=== PATIENT | female | born 1965 ===

== ENCOUNTER 2018-08-06 09:12 | Emergency (ER) | payer OTHER ==
[2018-08-06 09:20] VITALS: O2SAT 100
[2018-08-06 09:27] VITALS: RESP 17
--- NOTE | 2018-08-06 10:51 | C.PDOC ---
Time Seen by Provider: 08/06/18 09:33 Chief Complaint (Nursing): Shortness Of Breath Past Medical History Vital Signs: Last Vital Signs Temp 98.0 F 08/06/18 09:16 Pulse 71 08/06/18 09:16 Resp 17 08/06/18 09:24 BP 147/87 08/06/18 09:16 Pulse Ox 100 08/06/18 09:24 - Medical History PMH: Asthma - Social History Hx Alcohol Use: No Hx Substance Use: No - Immunization History Hx Tetanus Toxoid Vaccination: (unk) Hx Influenza Vaccination: No Hx Pneumococcal Vaccination: (unk) ED Course And Treatment O2 Sat by Pulse Oximetry: 100 Disposition - Disposition Disposition: HOME/ ROUTINE Disposition Time: 10:51 Condition: STABLE Additional Instructions: Follow up with the medical doctor within 1-2 days. Return if worsened. Forms: [employer] (Macanese)
--- NOTE | 2018-08-06 10:51 | C.PDOC ---
History Of Present Illness 53 years old female with PMHx of asthma presents to ED for complaints of productive cough, SOB, and chest congestion that began 3 weeks ago. Denies any other complaints. Time Seen by Provider: 08/06/18 09:33 Chief Complaint (Nursing): Shortness Of Breath History Per: Patient History/Exam Limitations: no limitations Onset/Duration Of Symptoms: Hrs Current Symptoms Are (Timing): Still Present Exacerbating Factor(s): Coughing Current Respiratory Medications: See Home Med List Associated Symptoms: Productive Cough Recent travel outside of the [place]: No Past Medical History Reviewed: Historical Data, Nursing Documentation, Vital Signs Vital Signs: Last Vital Signs Temp 98.0 F 08/06/18 09:16 Pulse 71 08/06/18 09:16 Resp 17 08/06/18 09:24 BP 147/87 08/06/18 09:16 Pulse Ox 100 08/06/18 09:24 - Medical History PMH: Asthma Family History: States: No Known Family Hx - Social History Hx Alcohol Use: No Hx Substance Use: No - Immunization History Hx Tetanus Toxoid Vaccination: (unk) Hx Influenza Vaccination: No Hx Pneumococcal Vaccination: (unk) Review Of Systems Constitutional: Negative for: Fever, Chills Cardiovascular: Positive for: Other (Chest congestion) Respiratory: Positive for: Cough, Shortness of Breath Gastrointestinal: Negative for: Nausea, Vomiting, Diarrhea Skin: Negative for: Rash Neurological: Negative for: Weakness, Numbness Physical Exam - Physical Exam Appears: Non-toxic, No Acute Distress Skin: Warm, Dry, No Rash Head: Atraumatic, Normacephalic Eye(s): bilateral: Normal Inspection, PERRL, EOMI Oral Mucosa: Moist Neck: Normal ROM, Supple Chest: Symmetrical, No Tenderness Cardiovascular: Rhythm Regular, No Murmur Respiratory: Normal Breath Sounds, No Rales, No Rhonchi, No Wheezing Gastrointestinal/Abdominal: Bowel Sounds, Soft, No Tenderness Extremity: Normal ROM Extremity: Bilateral: Atraumatic, Normal Color And Temperature, Normal ROM Pulses: Left Radial: Normal, Right Radial: Normal Neurological/Psych: Oriented x3, Normal Speech Gait: Steady ED Course And Treatment O2 Sat by Pulse Oximetry: 100 (RA) Pulse Ox Interpretation: Normal Medical Decision Making Medical Decision Making: Plan: * Prednisone On re-exam, the patient the patient reports improvement of symptoms. Lungs are CTA, heart is RRR, abdomen is soft, non-tender and tolerating PO well. The patient is ambulatory in the ED with steady gait. Follow up with the medical doctor within 1-2 days. Return if worsened. Disposition - Disposition Disposition: HOME/ ROUTINE Disposition Time: 10:30 Condition: STABLE Additional Instructions: Follow up with the medical doctor within 1-2 days. Return if worsened. 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 - Scribe Statement The provider has reviewed the documentation as recorded by the Bryanibtrisha June All medical record entries made by the Bryanibtrisha were at my direction and personally dictated by me. I have reviewed the chart and agree that the record accurately reflects my personal performance of the history, physical exam, medical decision making, and the department course for this patient. I have also personally directed, reviewed, and agree with the discharge instructions and disposition.
[2018-08-06 11:07] VITALS: BP 137/85; PULSE 68; TEMP 98.1
== END 2018-08-06 11:06 | disposition home or self-care (01) ==
LOC: C.ER 09:12
DX: J45.909 Unspecified asthma, uncomplicated (principal); J98.8 Other specified respiratory disorders

== ENCOUNTER 2018-11-02 10:21 | Observation (INO) | payer MEDICAID, OTHER ==
[2018-11-02] MEDS ORDERED: Sodium Chloride 0.9% 1,000 ML IV ONE (11:20)
--- NOTE | 2018-11-02 11:26 | C.PDOC ---
History Of Present Illness 53 y/o female presents to the ER complaining of left sided chest pain which began after she "pulled garage door" 2 days ago. Pt states that the pain is localized over the left anterior chest wall. Pt reports that the pain is reproducible and worse with movement.Pt denies having fever,chills, headache, dizziness, SOB and palpitations. Time Seen by Provider: 11/02/18 11:09 Chief Complaint (Nursing): Chest Pain History Per: Patient History/Exam Limitations: no limitations Onset/Duration Of Symptoms: Days Current Symptoms Are (Timing): Still Present Severity: Moderate Past Medical History Reviewed: Historical Data, Nursing Documentation, Vital Signs Vital Signs: Last Vital Signs Temp 98.6 F 11/02/18 10:36 Pulse 87 11/02/18 10:51 Resp 18 11/02/18 10:51 BP 144/63 11/02/18 10:51 Pulse Ox 99 11/02/18 10:51 - Medical History PMH: Asthma Other Surgeries: Hx of surgeries Family History: States: No Known Family Hx - Social History Hx Alcohol Use: No Hx Substance Use: No - Immunization History Hx Tetanus Toxoid Vaccination: (unk) Hx Influenza Vaccination: No Hx Pneumococcal Vaccination: (unk) Review Of Systems Except As Marked, All Systems Reviewed And Found Negative. Constitutional: Negative for: Fever, Chills Cardiovascular: Positive for: Chest Pain. Negative for: Palpitations Respiratory: Negative for: Shortness of Breath Neurological: Negative for: Headache, Dizziness Physical Exam - Physical Exam Appears: Non-toxic, No Acute Distress Skin: Normal Color, Warm, Dry Head: Atraumatic, Normacephalic Eye(s): bilateral: Normal Inspection Nose: Normal Oral Mucosa: Moist Neck: Supple Chest: Symmetrical, Tenderness (tenderness overlying left anterior chest wall), No Ecchymosis Cardiovascular: Rhythm Regular Respiratory: Normal Breath Sounds, No Rales, No Rhonchi, No Wheezing Gastrointestinal/Abdominal: Normal Exam, Soft, No Tenderness, No Guarding, No Rebound Neurological/Psych: Oriented x3, Normal Speech ED Course And Treatment - Laboratory Results Result Diagrams: 11/02/18 11:57 11/02/18 11:57 Lab Interpretation: No Acute Changes ECG: Interpreted By Me, Viewed By Me ECG Rhythm: Sinus Rhythm ECG Interpretation: Abnormal Interpretation Of ECG: SR@86/min, NAD, ST-T depression in II, III O2 Sat by Pulse Oximetry: 99 (RA) Pulse Ox Interpretation: Normal - Radiology CXR: Interpreted by Me, Read By Radiologist CXR Interpretation: Yes: No Acute Disease Progress Note: Labs,UA,ECG, and CXR ordered.Patient treated with IV Fluids and Toradol IV. Troponin I - negative. EKG- appears abnormal. Case discussed with ED attending and admission recommend. Case discussed with , admission to OBS tele with DX: CP, abnormal EKG arranged. Disposition - Disposition Disposition: HOSPITALIZED Disposition Time: 13:08 Condition: STABLE - Clinical Impression Clinical Impression: Chest pain, Abnormal EKG - PA / VP & GENERAL COUNSEL / Resident Statement MD/DO has reviewed & agrees with the documentation as recorded. - Scribe Statement The provider has reviewed the documentation as recorded by the Bryanibe Radha Wills Provider Attestation All medical record entries made by the Scribe were at my direction and personally dictated by me. I have reviewed the chart and agree that the record accurately reflects my personal performance of the history, physical exam, medical decision making, and the department course for this patient. I have also personally directed, reviewed, and agree with the discharge instructions and disposition.
[2018-11-02] MEDS ORDERED: Sodium Chloride 0.9% 1,000 ML ONE (11:37)
[2018-11-02 11:57] LABS: SQUAMOUS EPITHIAL 4 /hpf (0-5); URINE BILIRUBIN NEGATIVE (NEGATIVE); URINE BLOOD NEGATIVE (NEGATIVE); URINE CLARITY Hazy (Clear); URINE COLOR Yellow (YELLOW); URINE GLUCOSE (UA) NORMAL (Normal); URINE LEUKOCYTE ESTERASE TRACE Leu/uL (Negative); URINE PROTEIN NEGATIVE (NEGATIVE); URINE UROBILINOGEN NORMAL mg/dL (0.2-1.0)
[2018-11-02 12:01] LABS: BASO # 0.1 K/uL (0.0-0.2); BASO % 0.7 % (0.0-2.0); EOS % 0.6 % (0.0-4.0); HEMOGLOBIN 12.8 g/dL (11.0-16.0); LYMPH # 1.5 K/uL (1.0-4.3); LYMPH % 21.6 % (20.0-40.0); MEAN CELL VOLUME 94.6 fL (81.0-99.0); MEAN CORPUSCULAR HEMOGLOBIN 31.5 pg (27.0-31.0); MEAN CORPUSCULAR HGB CONC 33.3 g/dL (33.0-37.0); MONO # 0.4 K/uL (0.0-0.8); MONO % 5.4 % (0.0-10.0); NEUT # 4.9 K/uL (1.8-7.0); NEUT % 71.7 % (50.0-75.0); RBC 4.07 Mil/uL (3.80-5.20); RED CELL DISTRIBUTION WIDTH 12.8 % (11.5-14.5); WHITE BLOOD COUNT 6.9 K/uL (4.8-10.8)
[2018-11-02 12:08] LABS: INR 1.1; PROTHROMBIN TIME 11.9 SECONDS (9.7-12.2)
[2018-11-02 12:17] LABS: ALB/GLOB RATIO 1.3 (1.0-2.1); ALBUMIN 4.4 g/dL (3.5-5.0); BLOOD UREA NITROGEN 13 mg/dL (7-17); CALCIUM 9.5 mg/dl (8.6-10.4); GFR NON-AFRICAN AMERICAN > 60
[2018-11-02 12:24] LABS: ALT/SGPT 8 U/L (9-52); AST/SGOT 30 U/L (14-36)
[2018-11-02 12:26] LABS: B-TYPE NATRIURETIC PEPTIDE 34.4 pg/mL (0-900)
--- NOTE | 2018-11-02 12:48 | RAD ---
Date of service: 11/02/2018 HISTORY: Chest pain COMPARISON: 09/08/2015. TECHNIQUE: Chest PA and lateral FINDINGS: LINES AND TUBES: None. LUNG AND PLEURA: The lungs are well inflated and clear. No pleural effusion or pneumothorax. HEART AND MEDIASTINUM: The heart is not enlarged. No aortic atherosclerotic calcifications present. The hilar and mediastinal contours are within normal limits. SKELETAL STRUCTURES: The bony structures are within normal limits for the patient's age. VISUALIZED UPPER ABDOMEN: Normal. OTHER FINDINGS: None. IMPRESSION: No active pulmonary disease.
--- NOTE | 2018-11-02 15:04 | CP.PCM.HP ---
<NikhilSurya - Last Filed: 11/02/18 15:23> History of Present Illness - History of Present Illness History of Present Illness: PGY-1 History and Physical [address] Dr. Sweet Patient is a 53 year old female with past medical history of asthma (no prior intubations) presenting to the ED with acute onset L sided chest pain that began at night 2 days ago. Pain is described as sharp, localized to the L side of her chest/breast area, rated 7/10 in severity. Pain is reproducible with t runk flexion and rotation. Patient states she works at a [employer] and was closing shop/pulling down the gate 2 nights ago, began to have L sided chest pain later that night. She states she took 4 Motrin tablets 3 hours apart, then took Aleve with minimal improvement. No fevers/chills, headaches, dizziness, palpitation, shortness of breath, nausea/vomiting/diarrhea/constipation, dysuria, or changes in stool. 12 pt ROS reviewed and otherwise negative. Of note, patient undergoes annual mammogram screenings for b/l stable solid cystic nodules, previously biopsed. PMHx: asthma PSHx: denies. Allergies: NKDA Home Meds: albuterol pump "as needed, ~1x/year" Family Hx: Father--HTN, Brother--, substance abuse Social Hx: denies alcohol, tobacco, illicit drug use PMD: Clinic Present on Admission - Present on Admission Any Indicators Present on Admission: No Review of Systems - Review of Systems All systems: reviewed and no additional remarkable complaints except Review of Systems: as per HPI Past Patient History - Past Social History Smoking Status: Never Smoked - PULMONARY Hx Asthma: Yes - PSYCHIATRIC Hx Substance Use: No - SURGICAL HISTORY Hx Surgeries: Yes Hx Tubal Ligation: Yes - ANESTHESIA Hx Anesthesia: Yes Hx Anesthesia Reactions: No Meds Allergies/Adverse Reactions: Allergies Allergy/AdvReac Type Severity Reaction Status Date / Time No Known Allergies Allergy Verified 11/02/18 10:40 Physical Exam - Constitutional Appears: Non-toxic, No Acute Distress - Head Exam Head Exam: ATRAUMATIC, NORMAL INSPECTION, NORMOCEPHALIC - Eye Exam Eye Exam: EOMI, Normal appearance Pupil Exam: NORMAL ACCOMODATION - ENT Exam ENT Exam: Mucous Membranes Moist, Normal Exam - Neck Exam Neck exam: Positive for: Full Rom, Normal Inspection. Negative for: Tenderness - Respiratory Exam Respiratory Exam: Chest Wall Tenderness (elicited with active trunk flexion, sidebending/rotation), Clear to Auscultation Bilateral, NORMAL BREATHING PATTERN. absent: Accessory Muscle Use, Rales, Rhonchi, Wheezes, Respiratory Dis tress, Stridor - Cardiovascular Exam Cardiovascular Exam: REGULAR RHYTHM, +S1, +S2 - GI/Abdominal Exam GI & Abdominal Exam: Normal Bowel Sounds, Soft. absent: Distended, Firm, Guarding, Hernia, Rebound, Rigid, Tenderness - Extremities Exam Extremities exam: Positive for: normal capillary refill, normal inspection, pedal pulses present. Negative for: calf tenderness, pedal edema - Back Exam Back exam: NORMAL INSPECTION. absent: CVA tenderness (L), CVA tenderness (R), paraspinal tenderness - Neurological Exam Neurological exam: Alert, CN II-XII Intact, Normal Gait, Oriented x3 - Psychiatric Exam Psychiatric exam: Normal Affect, Normal Mood - Skin Skin Exam: Dry, Intact, Normal Color, Warm Results - Vital Signs Recent Vital Signs: Last Vital Signs Temp 98.3 F 11/02/18 14:32 Pulse 75 11/02/18 14:32 Resp 18 11/02/18 14:32 BP 137/62 11/02/18 14:32 Pulse Ox 99 11/02/18 14:37 - Labs Result Diagrams: 11/02/18 11:57 11/02/18 11:57 Labs: Laboratory Results - last 24 hr 11/02/18 11/02/18 11/02/18 11:47 11:57 11:57 WBC 6.9 RBC 4.07 Hgb 12.8 Hct 38.5 MCV 94.6 MCH 31.5 H MCHC 33.3 RDW 12.8 Plt Count 287 MPV 10.0 Neut % (Auto) 71.7 Lymph % (Auto) 21.6 [place] % (Auto) 5.4 Eos % (Auto) 0.6 Baso % (Auto) 0.7 Neut # (Auto) 4.9 Lymph # (Auto) 1.5 [place] # (Auto) 0.4 Eos # (Auto) 0.0 Baso # (Auto) 0.1 PT 11.9 INR 1.1 APTT 35 H Sodium Potassium Chloride Carbon Dioxide Anion Gap BUN Creatinine Est GFR ( Amer) Est GFR (Non-Af Amer) Random Glucose Calcium Total Bilirubin AST ALT Alkaline Phosphatase Troponin I NT-Pro-B Natriuret Pep Total Protein Albumin Globulin Albumin/Globulin Ratio Urine Color Yellow Urine Clarity Hazy Urine pH 8.0 Ur Specific [place] 1.009 Urine Protein Negative Urine Glucose (UA) Normal Urine Ketones Negative Urine Blood Negative Urine Nitrate Negative Urine Bilirubin Negative Urine Urobilinogen Normal Ur Leukocyte Esterase Trace Urine WBC (Auto) 4 Urine RBC (Auto) 5 H Ur Squamous Epith Cells 4 11/02/18 11:57 WBC RBC Hgb Hct MCV MCH MCHC RDW Plt Count MPV Neut % (Auto) Lymph % (Auto) [place] % (Auto) Eos % (Auto) Baso % (Auto) Neut # (Auto) Lymph # (Auto) [place] # (Auto) Eos # (Auto) Baso # (Auto) PT INR APTT Sodium 140 Potassium 4.2 Chloride 104 Carbon Dioxide 31 H Anion Gap 9 L BUN 13 Creatinine 0.7 Est GFR ( Amer) > 60 Est GFR (Non-Af Amer) > 60 Random Glucose 100 Calcium 9.5 Total Bilirubin 0.9 AST 30 ALT 8 L D Alkaline Phosphatase 53 Troponin I < 0.0120 NT-Pro-B Natriuret Pep 34.4 Total Protein 7.8 Albumin 4.4 Globulin 3.4 Albumin/Globulin Ratio 1.3 Urine Color Urine Clarity Urine pH Ur Specific [place] Urine Protein Urine Glucose (UA) Urine Ketones Urine Blood Urine Nitrate Urine Bilirubin Urine Urobilinogen Ur Leukocyte Esterase Urine WBC (Auto) Urine RBC (Auto) Ur Squamous Epith Cells Assessment & Plan - Assessment and Plan (Free Text) Assessment: 53 year old female with no pmhx presenting to ED with acute onset chest pain, likely musculoskeletal in origin, r/o ACS. Plan: Atypical chest pain -tropinin x 1 negative -CXR: no acute findings -EKG: NSR @ 86 bpm, no ST or T wave changes noted -f/u serial trops -f/u repeat EKG -lipid panel -tsh/free t4 -A1C -ibuprofen 600 mg PO TID prn for pain -toradol 30 mg q6 x 5 doses -flexeril 10 mg PO x 1 Breast nodules, bilaterally -previously biopsed, pt undergoes annual mammogram screening with no evidence of malignancy -breast u/s (12/01/17) -R breast: 9 o'clock axis, 3cm from nipple: hypoechoic solid nodule 4x8x8 mm; 11 o'clock axis, 2 cm from nipple: simple cyst, [id number] -L breast: 12 o'clock, 3 cm from nipple: hypoechoic solid nodule 5x8x9 mm; 2 o'clock axis, 5 cm from nipple: simple cyst 2x3x4 mm decreased in size from prior exam; 10 mm L axillary lymph node Hx of asthma -duonebs 3q4 prn PPx, Diet, Disposition -DVT ppx: scds -GI ppx: not indicated at this time -Diet: HHD Case discussed with Dr. Kee Tejeda DO, PGY-1 <Katie Sweet V - Last Filed: 11/02/18 17:56> Results - Vital Signs Recent Vital Signs: Last Vital Signs Temp 98.9 F 11/02/18 17:10 Pulse 69 11/02/18 17:10 Resp 17 11/02/18 17:10 BP 143/77 11/02/18 17:10 Pulse Ox 100 11/02/18 17:10 - Labs Result Diagrams: 11/02/18 11:57 11/02/18 11:57 Labs: Laboratory Results - last 24 hr 11/02/18 11/02/18 11/02/18 11:47 11:57 11:57 WBC 6.9 RBC 4.07 Hgb 12.8 Hct 38.5 MCV 94.6 MCH 31.5 H MCHC 33.3 RDW 12.8 Plt Count 287 MPV 10.0 Neut % (Auto) 71.7 Lymph % (Auto) 21.6 [place] % (Auto) 5.4 Eos % (Auto) 0.6 Baso % (Auto) 0.7 Neut # (Auto) 4.9 Lymph # (Auto) 1.5 [place] # (Auto) 0.4 Eos # (Auto) 0.0 Baso # (Auto) 0.1 PT 11.9 INR 1.1 APTT 35 H Sodium Potassium Chloride Carbon Dioxide Anion Gap BUN Creatinine Est GFR ( Amer) Est GFR (Non-Af Amer) Random Glucose Hemoglobin A1c Calcium Magnesium Total Bilirubin AST ALT Alkaline Phosphatase Troponin I NT-Pro-B Natriuret Pep Total Protein Albumin Globulin Albumin/Globulin Ratio Triglycerides Cholesterol LDL Cholesterol Direct HDL Cholesterol Free T4 TSH 3rd Generation Urine Color Yellow Urine Clarity Hazy Urine pH 8.0 Ur Specific [place] 1.009 Urine Protein Negative Urine Glucose (UA) Normal Urine Ketones Negative Urine Blood Negative Urine Nitrate Negative Urine Bilirubin Negative Urine Urobilinogen Normal Ur Leukocyte Esterase Trace Urine WBC (Auto) 4 Urine RBC (Auto) 5 H Ur Squamous Epith Cells 4 11/02/18 11/02/18 11/02/18 11:57 15:55 15:55 WBC RBC Hgb Hct MCV MCH MCHC RDW Plt Count MPV Neut % (Auto) Lymph % (Auto) [place] % (Auto) Eos % (Auto) Baso % (Auto) Neut # (Auto) Lymph # (Auto) [place] # (Auto) Eos # (Auto) Baso # (Auto) PT INR APTT Sodium 140 Potassium 4.2 Chloride 104 Carbon Dioxide 31 H Anion Gap 9 L BUN 13 Creatinine 0.7 Est GFR ( Amer) > 60 Est GFR (Non-Af Amer) > 60 Random Glucose 100 Hemoglobin A1c 5.6 Calcium 9.5 Magnesium 2.0 Total Bilirubin 0.9 AST 30 ALT 8 L D Alkaline Phosphatase 53 Troponin I < 0.0120 NT-Pro-B Natriuret Pep 34.4 Total Protein 7.8 Albumin 4.4 Globulin 3.4 Albumin/Globulin Ratio 1.3 Triglycerides Cholesterol LDL Cholesterol Direct HDL Cholesterol Free T4 TSH 3rd Generation 1.53 Urine Color Urine Clarity Urine pH Ur Specific [place] Urine Protein Urine Glucose (UA) Urine Ketones Urine Blood Urine Nitrate Urine Bilirubin Urine Urobilinogen Ur Leukocyte Esterase Urine WBC (Auto) Urine RBC (Auto) Ur Squamous Epith Cells 11/02/18 11/02/18 15:55 15:55 WBC RBC Hgb Hct MCV MCH MCHC RDW Plt Count MPV Neut % (Auto) Lymph % (Auto) [place] % (Auto) Eos % (Auto) Baso % (Auto) Neut # (Auto) Lymph # (Auto) [place] # (Auto) Eos # (Auto) Baso # (Auto) PT INR APTT Sodium Potassium Chloride Carbon Dioxide Anion Gap BUN Creatinine Est GFR ( Amer) Est GFR (Non-Af Amer) Random Glucose Hemoglobin A1c Calcium Magnesium Total Bilirubin AST ALT Alkaline Phosphatase Troponin I NT-Pro-B Natriuret Pep Total Protein Albumin Globulin Albumin/Globulin Ratio Triglycerides 50 D Cholesterol 187 LDL Cholesterol Direct 77 HDL Cholesterol 88 H Free T4 1.16 TSH 3rd Generation Urine Color Urine Clarity Urine pH Ur Specific [place] Urine Protein Urine Glucose (UA) Urine Ketones Urine Blood Urine Nitrate Urine Bilirubin Urine Urobilinogen Ur Leukocyte Esterase Urine WBC (Auto) Urine RBC (Auto) Ur Squamous Epith Cells Attending/Attestation - Attestation I have personally seen and examined this patient.: Yes I have fully participated in the care of the patient.: Yes I have reviewed all pertinent clinical information: Yes Notes (Text): 53 year old female PMHX asthma, abnormal breast nodules comes in after 2 day of chest pain, over the left side of the chest pain, worsened over movement, Patient reports she has attempted motrin X4 pills, and 2 aleve but pain persisted. Patient reports she was diagnosed with asthma, when she was living in the , but reports she used nebulizer sparingly and has not intubated. Patient's EKG noted V1 st depression only in the EKG. Patient gets breast US/mammogram yearly; next November 2018 imaging. Assessment/Plan 1. Atypical Chest pain Abnormal EKG Assessment/Plan * Cardiac enzymes and EKG X6 hours; negative troponin * echocardiogram * lipid panel in AM; a1c, tsh * MSK pain * Given Flexeril 10mg PO X1 * toradol 30mg IV Q6 X5 doses 2. History of Breast nodules, bilaterally Assessment/Plan * previously biopsed, pt undergoes annual mammogram screening with no evidence of malignanc * breast u/s (12/01/17) * R breast: 9 o'clock axis, 3cm from nipple: hypoechoic solid nodule 4x8x8 mm; 11 o'clock axis, 2 cm from nipple: simple cyst, [id number] * L breast: 12 o'clock, 3 cm from nipple: hypoechoic solid nodule 5x8x9 mm; 2 o'clock axis, 5 cm from nipple: simple cyst 2x3x4 mm decreased in size * from prior exam; 10 mm L axillary lymph node 3. Hx of asthma Assessment/Plan * Duonebs 3ml q4 prn shortness of breathe 4. PPx, Diet, Disposition * DVT ppx: scds * GI ppx: not indicated at this time * Diet: HHD * Occupational therapy/physical therap
[2018-11-02] MEDS ORDERED: Albuterol-Ipratrop 3 mg / 0.5 (3 ml) UD INH PRN (15:44)
[2018-11-02 16:41] LABS: HDL CHOLESTEROL 88 mg/dL (30-70)
[2018-11-02 16:52] LABS: LDL CHOLESTEROL 77 mg/dL (0-129)
[2018-11-02 21:12] LABS: CK-MB 0.52 ng/mL (0.0-3.38)
[2018-11-03 02:38] VITALS: RESP 20; O2SAT 100
[2018-11-03 02:52] LABS: CK-MB 0.47 ng/mL (0.0-3.38)
--- NOTE | 2018-11-03 07:26 | CP.PCM.DIS ---
<Surya Tejeda - Last Filed: 11/03/18 15:42> Provider - Provider Date of Admission: 11/02/18 13:10 Attending physician: Katie Sweet DO Time Spent in preparation of Discharge (in minutes): 40 Diagnosis - Discharge Diagnosis (1) Costochondritis, acute Status: Acute (2) Asthma Status: Chronic Hospital Course - Lab Results Lab Results: Most Recent Lab Values WBC 6.9 K/uL (4.8-10.8) 11/02/18 11:57 RBC 4.07 Mil/uL (3.80-5.20) 11/02/18 11:57 Hgb 12.8 g/dL (11.0-16.0) 11/02/18 11:57 Hct 38.5 % (34.0-47.0) 11/02/18 11:57 MCV 94.6 fL (81.0-99.0) 11/02/18 11:57 MCH 31.5 pg (27.0-31.0) H 11/02/18 11:57 MCHC 33.3 g/dL (33.0-37.0) 11/02/18 11:57 RDW 12.8 % (11.5-14.5) 11/02/18 11:57 Plt Count 287 K/uL (130-400) 11/02/18 11:57 MPV 10.0 fL (7.2-11.7) 11/02/18 11:57 Neut % (Auto) 71.7 % (50.0-75.0) 11/02/18 11:57 Lymph % (Auto) 21.6 % (20.0-40.0) 11/02/18 11:57 [place] % (Auto) 5.4 % (0.0-10.0) 11/02/18 11:57 Eos % (Auto) 0.6 % (0.0-4.0) 11/02/18 11:57 Baso % (Auto) 0.7 % (0.0-2.0) 11/02/18 11:57 Neut # (Auto) 4.9 K/uL (1.8-7.0) 11/02/18 11:57 Lymph # (Auto) 1.5 K/uL (1.0-4.3) 11/02/18 11:57 Prentiss # (Auto) 0.4 K/uL (0.0-0.8) 11/02/18 11:57 Eos # (Auto) 0.0 K/uL (0.0-0.7) 11/02/18 11:57 Baso # (Auto) 0.1 K/uL (0.0-0.2) 11/02/18 11:57 PT 11.9 SECONDS (9.7-12.2) 11/02/18 11:57 INR 1.1 11/02/18 11:57 APTT 35 SECONDS (21-34) H 11/02/18 11:57 Sodium 140 mmol/L (132-148) 11/02/18 11:57 Potassium 4.2 mmol/L (3.6-5.2) 11/02/18 11:57 Chloride 104 mmol/L (98-107) 11/02/18 11:57 Carbon Dioxide 31 mmol/L (22-30) H 11/02/18 11:57 Anion Gap 9 (10-20) L 11/02/18 11:57 BUN 13 mg/dL (7-17) 11/02/18 11:57 Creatinine 0.7 mg/dL (0.7-1.2) 11/02/18 11:57 Est GFR ( Amer) > 60 11/02/18 11:57 Est GFR (Non-Af Amer) > 60 11/02/18 11:57 Random Glucose 100 mg/dL (65-105) 11/02/18 11:57 Hemoglobin A1c 5.6 % (4.2-6.5) 11/02/18 15:55 Calcium 9.5 mg/dl (8.6-10.4) 11/02/18 11:57 Magnesium 2.0 mg/dL (1.6-2.3) 11/02/18 15:55 Total Bilirubin 0.9 mg/dL (0.2-1.3) 11/02/18 11:57 AST 30 U/L (14-36) 11/02/18 11:57 ALT 8 U/L (9-52) L D 11/02/18 11:57 Alkaline Phosphatase 53 U/L (38-126) 11/02/18 11:57 Total Creatine Kinase 107 U/L (30-135) 11/03/18 02:20 CK-MB (Mass) 0.47 ng/mL (0.0-3.38) 11/03/18 02:20 Troponin I < 0.0120 ng/mL (0.00-0.120) 11/03/18 02:20 NT-Pro-B Natriuret Pep 34.4 pg/mL (0-900) 11/02/18 11:57 Total Protein 7.8 g/dL (6.3-8.3) 11/02/18 11:57 Albumin 4.4 g/dL (3.5-5.0) 11/02/18 11:57 Globulin 3.4 gm/dL (2.2-3.9) 11/02/18 11:57 Albumin/Globulin Ratio 1.3 (1.0-2.1) 11/02/18 11:57 Triglycerides 50 mg/dL (0-149) D 11/02/18 15:55 Cholesterol 187 mg/dL (0-199) 11/02/18 15:55 LDL Cholesterol Direct 77 mg/dL (0-129) 11/02/18 15:55 HDL Cholesterol 88 mg/dL (30-70) H 11/02/18 15:55 Free T4 1.16 ng/dL (0.78-2.19) 11/02/18 15:55 TSH 3rd Generation 1.53 mIU/L (0.46-4.68) 11/02/18 15:55 Urine Color Yellow (YELLOW) 11/02/18 11:47 Urine Clarity Hazy (Clear) 11/02/18 11:47 Urine pH 8.0 (5.0-8.0) 11/02/18 11:47 Ur Specific [place] 1.009 (1.003-1.030) 11/02/18 11:47 Urine Protein Negative mg/dL (NEGATIVE) 11/02/18 11:47 Urine Glucose (UA) Normal mg/dL (Normal) 11/02/18 11:47 Urine Ketones Negative mg/dL (NEGATIVE) 11/02/18 11:47 Urine Blood Negative (NEGATIVE) 11/02/18 11:47 Urine Nitrate Negative (NEGATIVE) 11/02/18 11:47 Urine Bilirubin Negative (NEGATIVE) 11/02/18 11:47 Urine Urobilinogen Normal mg/dL (0.2-1.0) 11/02/18 11:47 Ur Leukocyte Esterase Trace Adam/uL (Negative) 11/02/18 11:47 Urine WBC (Auto) 4 /hpf (0-5) 11/02/18 11:47 Urine RBC (Auto) 5 /hpf (0-3) H 11/02/18 11:47 Ur Squamous Epith Cells 4 /hpf (0-5) 11/02/18 11:47 - Hospital Course Hospital Course: HPI: Patient is a 53 year old female with past medical history of asthma (no prior intubations) presenting to the ED with acute onset L sided chest pain that began at night 2 days ago. Pain is described as sharp, localized to the L side of her chest/breast area, rated 7/10 in severity. Pain is reproducible with trunk flexion and rotation. 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 She states she took 4 Motrin tablets 3 hours apart, then took Aleve with minimal improvement. No fevers/chills, headaches, dizziness, palpitation, shortness of breath, nausea/vomiting/diarrhea/constipation, dysuria , or changes in stool. 12 pt review of systems reviewed and otherwise negative. Of note, patient undergoes annual mammogram screenings for bilateral stable solid cystic nodules, previously biopsed. During course of hospital admission: Chest wall tenderness was reproducible on physical exam in the ED. Patient was given Toradol 30 mg IVP x 1 in the ED with mild improvement of chest pain. Serial troponin series obtained was negative. Initial EKG noted ST segment depression in lead V1, no acute changes in interval repeat EKGs or evidence of ST segment elevation or T wave changes. Chest Xray obtained demonstrated no active pathology. Lipid panel, thyroid panel, Hemoglobin A1C all returned within normal limits. Patient was given 5 total doses of toradol 30 mg IVP every 6 hours, as well as a one time dose of flexeril for chest pain likely musculoskeletal in origin. Duonebs were ordered as needed, given patient's history of asthma. Patient was monitored overnight, with no acute events reported. Patient endorsed improvement of pain during hospital course and remained hemodynamically stable. Patient is medically cleared for discharge to home, as per Dr. Sweet. Patient to continue taking nebulizer as needed for asthma- induced shortness of breath. Patient to be given script for Naproxen 500 mg twice daily for a total of 5 days, to take for musculoskeletal pain. Patient was instructed to rest, limit strenuous exercise or strain to involved muscle, may take over the counter NSAIDs as needed for musculoskeletal-type pain in the future. Patient was instructed to follow up at the [facility] for further monitoring and continued care. Patient states she already has an appointment scheduled for the beginning of November. Patient was also instructed to continue undergoing annual mammogram screenings for bilateral stable breast nodules. If symptoms worsen or recur, please return to the ED immediately. The following is a summary of hospital course. For full detail, please refer to EMR. - Date & Time of H&P Date of H&P: 11/03/18 Time of H&P: 07:13 Discharge Exam - Head Exam Head Exam: ATRAUMATIC, NORMAL INSPECTION, NORMOCEPHALIC - Eye Exam Eye Exam: EOMI, Normal appearance Pupil Exam: NORMAL ACCOMODATION - ENT Exam ENT Exam: Mucous Membranes Moist, Normal Exam - Neck Exam Neck exam: Full Rom, Normal Inspection - Respiratory Exam Respiratory Exam: Clear to PA & Lateral, NORMAL BREATHING PATTERN, UNREMARKABLE. absent: Accessory Muscle Use, Rales, Rhonchi, Wheezes, Respiratory Distress, Stridor - Cardiovascular Exam Cardiovascular Exam: REGULAR RHYTHM, +S1, +S2 - GI/Abdominal Exam GI & Abdominal Exam: Normal Bowel Sounds, Soft, Unremarkable. absent: Distended, Firm, Guarding, Rebound, Rigid, Tenderness - Extremities Exam Extremities exam: full ROM, normal capillary refill, normal inspection, pedal pulses present - Back Exam Back exam: FULL ROM, NORMAL INSPECTION. absent: CVA tenderness (L), CVA tenderness (R) - Neurological Exam Neurological exam: Alert, CN II-XII Intact, Normal Gait, Oriented x3 - Skin Skin Exam: Dry, Intact, Normal Color, Warm Discharge Plan - Discharge Medications Prescriptions: Albuterol/Ipratropium [Duoneb 3 MG/3 Ml-0.5 MG/3 Ml 3 Ml] 1 ea IH Q4H PRN #1 neb PRN Reason: Shortness Of Breath Naproxen [EC-Naproxen] 500 mg PO BID 5 Days tablet.dr - Follow Up Plan Condition: STABLE Disposition: HOME/ ROUTINE Instructions: Chest Pain That Is Not Caused by the Heart (DC), Chest Pain (DC), Stretching Exercises for Your Upper Body Additional Instructions: Patient is medically cleared for discharge to home, as per Dr. Sweet. Patient to continue taking nebulizer as needed for asthma-induced shortness of breath. Patient to be given script for Naproxen 500 mg twice daily for a total of 5 days, to take for musculoskeletal pain. Patient was instructed to rest, limit strenuous exercise or strain to involved muscle, may take over the counter NSAIDs as needed for musculoskeletal-type pain in the future. Patient was instructed to follow up at the [facility] for further monitoring and continued care. Patient states she already has an appointment scheduled for the beginning of November. Patient was also instructed to continue undergoing annual mammogram screenings for bilateral stable breast nodules. If symptoms worsen or recur, please return to the ED immediately. El paciente tiene autorizacin mdica para el rosalind hospitalaria, segn el Dr. Sweet. El paciente debe continuar tomando nebulizador segn sea necesario para la falta de aliento inducida por el asma. Al paciente se le administrar el pranav de Naproxen 500 mg dos veces al da kristin un total de 5 conway, para el dolor musculoesqueltico. Se instruy al paciente para que descansara, limitara el ejercicio vigoroso o la tensin en el msculo involucrado, podra hudson los ZACARIAS del contador segn sea necesario para el dolor de tipo musculoesqueltico en el futuro. Se instruy a la paciente para que realizara un seguimiento en el [facility] para un seguimiento y valarie atencin continuada. La paciente dice que ya tiene valarie carlos programada para principios de fam. Tambin se instruy a la paciente para que contine sometindose a exmenes de mamografa anuales para detectar ndulos mamarios bilaterales estables. Si los sntomas empeoran o reaparecen, regrese inmediatamente al servicio de urgencias Referrals: [facility] [Outside] <Katie Sweet V - Last Filed: 11/03/18 18:09> Provider - Provider Date of Admission: 11/02/18 13:10 Attending physician: Katie Sweet, DO Hospital Course - Lab Results Lab Results: Most Recent Lab Values WBC 6.9 K/uL (4.8-10.8) 11/02/18 11:57 RBC 4.07 Mil/uL (3.80-5.20) 11/02/18 11:57 Hgb 12.8 g/dL (11.0-16.0) 11/02/18 11:57 Hct 38.5 % (34.0-47.0) 11/02/18 11:57 MCV 94.6 fL (81.0-99.0) 11/02/18 11:57 MCH 31.5 pg (27.0-31.0) H 11/02/18 11:57 MCHC 33.3 g/dL (33.0-37.0) 11/02/18 11:57 RDW 12.8 % (11.5-14.5) 11/02/18 11:57 Plt Count 287 K/uL (130-400) 11/02/18 11:57 MPV 10.0 fL (7.2-11.7) 11/02/18 11:57 Neut % (Auto) 71.7 % (50.0-75.0) 11/02/18 11:57 Lymph % (Auto) 21.6 % (20.0-40.0) 11/02/18 11:57 [place]iss % (Auto) 5.4 % (0.0-10.0) 11/02/18 11:57 Eos % (Auto) 0.6 % (0.0-4.0) 11/02/18 11:57 Baso % (Auto) 0.7 % (0.0-2.0) 11/02/18 11:57 Neut # (Auto) 4.9 K/uL (1.8-7.0) 11/02/18 11:57 Lymph # (Auto) 1.5 K/uL (1.0-4.3) 11/02/18 11:57 Prentiss # (Auto) 0.4 K/uL (0.0-0.8) 11/02/18 11:57 Eos # (Auto) 0.0 K/uL (0.0-0.7) 11/02/18 11:57 Baso # (Auto) 0.1 K/uL (0.0-0.2) 11/02/18 11:57 PT 11.9 SECONDS (9.7-12.2) 11/02/18 11:57 INR 1.1 11/02/18 11:57 APTT 35 SECONDS (21-34) H 11/02/18 11:57 Sodium 140 mmol/L (132-148) 11/02/18 11:57 Potassium 4.2 mmol/L (3.6-5.2) 11/02/18 11:57 Chloride 104 mmol/L (98-107) 11/02/18 11:57 Carbon Dioxide 31 mmol/L (22-30) H 11/02/18 11:57 Anion Gap 9 (10-20) L 11/02/18 11:57 BUN 13 mg/dL (7-17) 11/02/18 11:57 Creatinine 0.7 mg/dL (0.7-1.2) 11/02/18 11:57 Est GFR ( Amer) > 60 11/02/18 11:57 Est GFR (Non-Af Amer) > 60 11/02/18 11:57 Random Glucose 100 mg/dL (65-105) 11/02/18 11:57 Hemoglobin A1c 5.6 % (4.2-6.5) 11/02/18 15:55 Calcium 9.5 mg/dl (8.6-10.4) 11/02/18 11:57 Magnesium 2.0 mg/dL (1.6-2.3) 11/02/18 15:55 Total Bilirubin 0.9 mg/dL (0.2-1.3) 11/02/18 11:57 AST 30 U/L (14-36) 11/02/18 11:57 ALT 8 U/L (9-52) L D 11/02/18 11:57 Alkaline Phosphatase 53 U/L (38-126) 11/02/18 11:57 Total Creatine Kinase 107 U/L (30-135) 11/03/18 02:20 CK-MB (Mass) 0.47 ng/mL (0.0-3.38) 11/03/18 02:20 Troponin I < 0.0120 ng/mL (0.00-0.120) 11/03/18 02:20 NT-Pro-B Natriuret Pep 34.4 pg/mL (0-900) 11/02/18 11:57 Total Protein 7.8 g/dL (6.3-8.3) 11/02/18 11:57 Albumin 4.4 g/dL (3.5-5.0) 11/02/18 11:57 Globulin 3.4 gm/dL (2.2-3.9) 11/02/18 11:57 Albumin/Globulin Ratio 1.3 (1.0-2.1) 11/02/18 11:57 Triglycerides 50 mg/dL (0-149) D 11/02/18 15:55 Cholesterol 187 mg/dL (0-199) 11/02/18 15:55 LDL Cholesterol Direct 77 mg/dL (0-129) 11/02/18 15:55 HDL Cholesterol 88 mg/dL (30-70) H 11/02/18 15:55 Free T4 1.16 ng/dL (0.78-2.19) 11/02/18 15:55 TSH 3rd Generation 1.53 mIU/L (0.46-4.68) 11/02/18 15:55 Urine Color Yellow (YELLOW) 11/02/18 11:47 Urine Clarity Hazy (Clear) 11/02/18 11:47 Urine pH 8.0 (5.0-8.0) 11/02/18 11:47 Ur Specific [place] 1.009 (1.003-1.030) 11/02/18 11:47 Urine Protein Negative mg/dL (NEGATIVE) 11/02/18 11:47 Urine Glucose (UA) Normal mg/dL (Normal) 11/02/18 11:47 Urine Ketones Negative mg/dL (NEGATIVE) 11/02/18 11:47 Urine Blood Negative (NEGATIVE) 11/02/18 11:47 Urine Nitrate Negative (NEGATIVE) 11/02/18 11:47 Urine Bilirubin Negative (NEGATIVE) 11/02/18 11:47 Urine Urobilinogen Normal mg/dL (0.2-1.0) 11/02/18 11:47 Ur Leukocyte Esterase Trace Adam/uL (Negative) 11/02/18 11:47 Urine WBC (Auto) 4 /hpf (0-5) 11/02/18 11:47 Urine RBC (Auto) 5 /hpf (0-3) H 11/02/18 11:47 Ur Squamous Epith Cells 4 /hpf (0-5) 11/02/18 11:47 Attending/Attestation - Attestation I have personally seen and examined this patient.: Yes I have fully participated in the care of the patient.: Yes I have reviewed all pertinent clinical information, including history, physical exam and plan: Yes Notes (Text): Patient seen, examined and case discussed with manager medical writing. Patient seen, examined at bedside. No chest pain at bedside. improved after NSAID. Patient's repeat EKG normal sinus. Cardiac enzymes are negative. Patient is in no acute excerbation of asthma. Patient has completed echo; which she can follow-up outpatient for result. Discussed patient's a1c in regards to impaired glucose tolerance, to start making diet modifications to prevent overt diabetes. recommended for aspirin 81mg once a day as a cardioprotective agent and short course of Naproxen 500mg PO bid to reduce inflammation secondary to costochondritis. Patient to follow-up with her outpatient surveillance for her breast nodules; next imaging in November. This a summary of patient's hospitalization. Please refer to EMR for full detail of record. Discharge Diagnoses: 1. Costochronditis Assessment/Plan * Cardiac enzymes X3 negative * echocardiogram follow-up outpatient * Naproxen 500mg PO BID * Aspirin 81mg PO daily 2. History of Breast nodules, bilaterally Assessment/Plan * previously biopsed, pt undergoes annual mammogram screening with no evidence of malignancy * breast u/s (12/01/17) * R breast: 9 o'clock axis, 3cm from nipple: hypoechoic solid nodule 4x8x8 mm; 11 o'clock axis, 2 cm from nipple: simple cyst, [id number] * L breast: 12 o'clock, 3 cm from nipple: hypoechoic solid nodule 5x8x9 mm; 2 o'clock axis, 5 cm from nipple: simple cyst 2x3x4 mm decreased in size * from prior exam; 10 mm L axillary lymph node 3. Hx of asthma Assessment/Plan * Duonebs 3ml q4 prn shortness of breathe * Given Albuterol HFA prn shortness prescription on discharge * Recommended for pulmonary referral to evaluation with pfts 4. Impaired glucose tolerance Assessment/Plan * a1c reviewed * recommended diet and exercise modifications to reduce risk for overt diabetes 5. PPx, Diet, Disposition * DVT ppx: scds * GI ppx: not indicated at this time * Diet: HHD * Occupational therapy/physical therap
[2018-11-03 08:32] VITALS: BP 120/62; TEMP 99.3
[2018-11-03] MEDS ORDERED: Enoxaparin 40 mg Syringe SC SCH (10:00)
[2018-11-03 12:26] VITALS: PULSE 74
--- NOTE | 2018-11-04 21:35 | CARD ---
APPROVED REPORT Date of service: 11/02/2018 EKG Measurement Heart [id number] <Conclusion> Normal sinus rhythm Nonspecific ST abnormality Abnormal ECG
== END 2018-11-03 14:51 | disposition home or self-care (01) ==
LOC: C.ER 10:21 → C.9E 13:10 → C.6T 16:38
PROVIDERS: ADMIT Hospitalist; ATTEND Hospitalist
DX: M94.0 Chondrocostal junction syndrome [Tietze] (principal); Z82.49 Family history of ischemic heart disease and other diseases of the circulatory system; R73.02 Impaired glucose tolerance (oral); J45.909 Unspecified asthma, uncomplicated
CPT/HCPCS: 36415; 71046; 80053; 80061; 81001; 81025; 83036; 83735; 83880; 84439; 84443; 84484; 85025; 85610; 85730; 93005; 93306; 96360; 96374; 97165; 97530; 99285; G0378; G8987; G8988; G8989; J1650; J1885; J7030

== ENCOUNTER 2018-12-28 12:48 | Outpatient (CLI) | payer MEDICAID | END 2018-12-28 12:49 | disposition home or self-care (01) | LOC: C.RADH 12:48 | DX: M25.571 Pain in right ankle and joints of right foot (principal) ==